=== PATIENT | female | born 1995 | race Hispanic/Latino ===

== ENCOUNTER 2019-01-12 16:00 | Outpatient (CLI) | payer BC ==
[2019-01-12 16:55] VITALS: BP 101/58
== END 2019-01-12 17:05 | disposition home or self-care (01) ==
LOC: TRG 16:00
PROVIDERS: ATTEND Obstetrics & Gynecology
DX: O47.1 False labor at or after 37 completed weeks of gestation (principal); O99.513 Diseases of the respiratory system complicating pregnancy, third trimester; J45.909 Unspecified asthma, uncomplicated; Z3A.38 38 weeks gestation of pregnancy

== ENCOUNTER 2019-01-29 15:26 | Inpatient (IN) | payer BC ==
[2019-01-29] MEDS ORDERED: LACTATED RINGERS 1,000 ML ONE (16:02)
[2019-01-29] MEDS ORDERED: MINERAL OIL PO PRN (16:09)
[2019-01-29] MEDS ORDERED: BRETHINE SUB-Q PRN (16:09)
[2019-01-29] MEDS ORDERED: ZOFRAN IV PRN ×2 (16:09→23:27)
[2019-01-29] MEDS ORDERED: AMPICILLIN/NS 2 GM/100 ML 2 GM/100 ML BAG IV ONE (16:09)
[2019-01-29] MEDS ORDERED: XYLOCAINE 2% INFILTRATI ONE (16:09)
[2019-01-29] MEDS ORDERED: SUBLIMAZE IV PRN (16:09)
--- NOTE | 2019-01-29 16:19 | History and Physical Report ---
History of Present Illness Date of examination: 01/29/19 (sent from office in active labor) Date of admission: 01/29/19 15:26 History of present illness: EDC Confirmation: 01/23/2019 Gestational Age: 7 weeks Past History : 3 Term Births: 1 Premature Births: 0 Living Children: 1 Para: 1 Mult. Births: 0 Prev : 0 Aborta: 1 Elect. Ab: 0 Spont. Ab: 1 Ectopics: 0 # 1 Delivery date: 06/30/2016 Weeks Gestation: 38 Delivery type: Vaginal Anesthesia type: epidural Delivery location: [facility] Sex: male weight: 6.31 Name: Juan Kirkland Comments: none # 2 Delivery date: 02/2018 Weeks Gestation: 8 Delivery type: SAB Delivery location: [place] Comments: D&C Past Medical History: Reviewed history from 11/17/2015 and no changes required: IC Past Surgical History: cystoscopies D&C: (2017) Family History Summary: Reviewed history and no changes required: 06/06/2018 Mother (biol.) - Has Family History of Hypertension - Entered On: 11/17/2015 Father (biol.) - Has Family History of Hypertension - Entered On: 11/17/2015 Father (biol.) - Has No Family History of Breast Cancer - Entered On: 11/17/2015 Father (biol.) - Has No Family History of Cervical Cancer - Entered On: 11/17/2015 Father (biol.) - Has No Family History of Colon Cancer - Entered On: 11/17/2015 Father (biol.) - Has No Family History of Diabetes - Entered On: 11/17/2015 Father (biol.) - Has No Family History of Ovarvian Cancer - Entered On: 11/17/2015 Father (biol.) - Has No Family History of DVT/PE on OCP - Entered On: 11/17/2015 Social History: Patient is administration professional Smoking History: Patient has never smoked. Risk Factors: Smoked Tobacco Use: Never smoker Drug use: no HIV high-risk behavior: low risk Alcohol use: no Past Medical History Surgery (Non-statistician): cystoscopies D&C: (2017) Abnormal PAP: positive, 2015- no f/u needed SEDRICK Exposure: negative Infertility: negative Uterine Anomaly: negative Uterine Surgery (not C/S): negative Other Gynecologic Problems: negative Social Hx: Patient is administration professional Smoking History: Patient has never smoked. Infection History Hx of STD: none HIV Risk Eval: low risk Hepatitis B Risk Eval: low risk Personal hx. of genital herpes: no Genetic History Congenital Heart Defect: Mom: no Dad: no Jing Disease: Mom: no Dad: no Thalassemia Mom: no Dad: no Neural Tube Defect Mom: no Dad: no Down's Syndrome Mom: no Dad: no Vinay-Sachs Mom: no Dad: no Sickle Cell Disease/Trait Mom: no Dad: no Hemophilia Mom: no Dad: no Muscular Dystrophy Mom: no Dad: no Cystic Fibrosis Mom: no Dad: no [place] Chorea Mom: no Dad: no Mental Retardation Mom: no Dad: no Fragile X Mom: no Dad: no Other Genetic/Chromosomal Disorder Mom: no Dad: no Child w/other defect Mom: no Dad: no Current Allergies (reviewed today): BACTRIM (SULFAMETHOXAZOLE-TRIMETHOPRIM TABS) (Critical) Past History - Obstetrical History Expected Date of Delivery: 01/23/19 Actual Gestation: 40 Week(s) 6 Day(s) : 3 Para: 1 Hx # Term Pregnancies: 1 Number of Pregnancies: 0 Spontaneous Abortions: 1 Induced : 0 Number of Living Children: 1 Medications and Allergies Allergies Allergy/AdvReac Type Severity Reaction Status Date / Time No Known Allergies Allergy Verified 06/26/16 16:44 Home Medications Medication Instructions Recorded Confirmed Last Taken Type Ferrous Sulfate [Feosol 325 MG tab] 325 mg PO BID #60 tablet 07/01/16 Unknown Rx Ibuprofen [Motrin 800 MG tab] 800 mg PO Q6H PRN #30 tablet 07/01/16 Unknown Rx [id number]/Iron Fum/Folic/Docusate 01/12/19 01/01/19 09:00 History [Se-Maria Ines 19 Tablet] 1 - Vital Signs Vital signs: Vital Signs Pulse BP 101 H 135/90 01/29/19 15:52 01/29/19 15:52 Temp Pulse Resp BP Pulse Ox 96 H 142/87 01/29/19 16:08 01/29/19 16:08 - Physical Exam Breasts: Positive: deferred Cardiovascular: Regular rate, Normal S1, Normal S2 Lungs: Positive: Normal air movement Abdomen: Positive: normal appearance, soft, normal bowel sounds. Negative: distention, tenderness Genitourinary (Female): Positive: other (leaking meconium stained fluid) Vulva: both: normal Vagina: Positive: normal moisture. Negative: discharge Cervix: Negative: lesion, discharge Uterus: Positive: normal size, normal contour Adnexa: both: normal Anus/Rectum: Positive: normal perianal skin, heme negative. Negative: rectal mass, hemorrhoids Extremities: Positive: normal Deep Tendon Reflex Grade: Normal +2 - Obstetrical FHR: category 1 Uterine Contraction Monitor Mode: External Cervical Dilatation: 5.5 (particulate meconium noted on exam) Cervical Effacement Percentage: 80 station: -1 Results All other labs normal. GBS POSITIVE HBsAg Screen Negative Negative *1 RPR Non Reactive Non Reactive *2 Rubella Antibodies, IgG 1.58 index Immune >0.99 *3 Non-immune <0.90 Equivocal 0.90 - 0.99 Immune >0.99 ABO Grouping O *4 Rh Factor Positive *5 Please note: Prior records for this patient's ABO / Rh type are not available for additional verification. Antibody Screen Negative Negative *6 WBC 7.4 x10E3/uL 3.4-10.8 *7 RBC 4.06 x10E6/uL 3.77-5.28 *8 Hemoglobin 12.2 g/dL 11.1-15.9 *9 Hematocrit 36.7 % 34.0-46.6 *10 MCV 90 fL 79-97 *11 MCH 30.0 pg 26.6-33.0 *12 MCHC 33.2 g/dL 31.5-35.7 *13 RDW 13.5 % 12.3-15.4 *14 Platelets 238 x10E3/uL 150-379 *15 Neutrophils 69 % Not Estab. *16 Lymphs 21 % Not Estab. *17 Monocytes 7 % Not Estab. *18 Eos 3 % Not Estab. *19 Basos 0 % Not Estab. *20 ! Immature Cells <No Reported Value> *21 Neutrophils (Absolute) 5.1 x10E3/uL 1.4-7.0 *22 Lymphs (Absolute) 1.5 x10E3/uL 0.7-3.1 *23 Monocytes(Absolute) 0.5 x10E3/uL 0.1-0.9 *24 Eos (Absolute) 0.2 x10E3/uL 0.0-0.4 *25 Baso (Absolute) 0.0 x10E3/uL 0.0-0.2 *26 ! Immature Granulocytes 0 % Not Estab. *27 ! Immature Grans (Abs) 0.0 x10E3/uL 0.0-0.1 *28 ! NRBC <No Reported Value> *29 Hematology Comments: <No Reported Value> *30 Tests: (2) Panel 016808 ([id number]) HIV Screen 4th Generation wRfx Non Reactive Non Reactive *31 Tests: (3) HCV Ab w/Rflx to Verification (890332) ! HCV Ab <0.1 s/co ratio 0.0-0.9 *32 Tests: (4) Comment: (518350) ! Comment: SPRCS *33 Non reactive HCV antibody screen is consistent with no HCV infection, unless recent infection is suspected or other evidence exists to indicate HCV infection. Tests: (5) Urine Culture, Routine (210537) Urine Culture, Routine Final report *34 Tests: (6) Result (020853) ! Result 1 No growth *35 Assessment and Plan - Patient Problems (1) 41 weeks gestation of Onset Date: ~01/29/19 Current Visit: Yes Status: Acute Plan to address problem: 23yo @ 41 w in active labor SVE 5-6,80,-1 Sent from office. Pt also c/o ROM brown fluid Meconium stained fluid noted on exam. NICU notified. GBS+ ABX ordered. All orders in EMR. (2) Group B Streptococcus carrier state affecting Onset Date: ~01/29/19 Current Visit: Yes Status: Acute Plan to address problem: Ampicillin per protocol
[2019-01-29 16:46] LABS: Hematocrit 34.9 % (30.3-42.9); Hemoglobin 11.5 gm/dl (10.1-14.3); Mean Corpuscular HGB Conc 33 % (30-34); Mean Corpuscular Volume 80 fl (79-97); Platelet Count 148 K/mm3 (140-440); Red Blood Count 4.36 M/mm3 (3.65-5.03); Red Cell Distribution Width 15.1 % (13.2-15.2)
[2019-01-29] MEDS ORDERED: PITOCin/NS 30 UNIT/500ML 30 UNITS/500 ML BAG IV SCH (17:00)
[2019-01-29] MEDS: LACTATED RINGERS 1,000 ML IV SCH ×2 (17:35→18:54)
[2019-01-29] MEDS ORDERED: fentaNYL-BUPIV 2 MCG/ML-0.125% 200 MCG/100 ML BAG EPIDURAL ONE (18:41)
[2019-01-29] MEDS ORDERED: NARCAN 2 MG/2 ML IV PRN (19:15)
--- NOTE | 2019-01-29 19:22 | Anesthesia Day of Surgery ---
Anesthesia Day of Surgery - Day of Surgery Patient Examined: Yes Patient H&P Reviewed: Yes Patient is NPO: Yes Beta Blockers: No Cardiac Clearance: No Pulmonary Clearance: No Travis's Test: N/A
--- NOTE | 2019-01-29 19:22 | Post Anesthesia Evaluation ---
- Post Anesthesia Evaluation Patient Participated: Yes Airway Patent: Yes Stable Respiratory Function: Yes Nausea/Vomiting: No Temp > 96.8F: Yes Pain Manageable: Yes Adequeate Hydration: Yes Anesthesia Complications: No Block Receding Appropriately: Yes Patient on Ventilator: No
--- NOTE | 2019-01-29 19:22 | Anesthesia Consultation ---
Anesthesia Consult and Med Hx Date of service: 01/29/19 - Airway Anesthetic Teeth Evaluation: Good ROM Head & Neck: Adequate Mental/Hyoid Distance: Adequate Mallampati Class: Class II Intubation Access Assessment: Probably Good - Pulmonary Exam CTA: Yes - Pre-Operative Health Status ASA Pre-Surgery Classification: ASA2 Proposed Anesthetic Plan: Epidural - Pulmonary Hx Smoking: No Hx Asthma: Yes (as a kid) Hx Respiratory Symptoms: No SOB: No COPD: No Home Oxygen Therapy: No Hx Pneumonia: No Hx Sleep Apnea: No - Cardiovascular System Hx Hypertension: No Hx Coronary Artery Disease: No Hx Heart Attack/AMI: No Hx Angina: No Hx Percutaneous Transluminal Coronary Angioplasty (PTCA): No Hx Cardia Arrhythmia: No Hx Pacemaker: No Hx Internal Defibrillator: No Hx Valvular Heart Disease: No Hx Heart Murmur: No Hx Peripheral Vascular Disease: No - Central Nervous System Hx Neuromuscular Disorder: No Hx Seizures: No CVA: No Hx Back Pain: Yes Hx Psychiatric Problems: No - Gastrointestinal Hx Ulcer: No Hx Gastroesophageal Reflux Disease: Yes - Endocrine Hx Renal Disease: No Hx End Stage Renal Disease: No Hx Cirrhosis: No Hx Liver Disease: No Hx Insulin Dependent Diabetes: No Hx Non-Insulin Dependent Diabetes: No Hx Thyroid Disease: No Hx Hypothyroidism: No Hx Hyperthyroidism: No - Hematic Hx Anemia: No Hx Sickle Cell Disease: No - Other Systems Hx Alcohol Use: No Hx Substance Use: No Hx Cancer: No Hx Obesity: No
[2019-01-29] MEDS ORDERED: fentaNYL-BUPIV 2 MCG/ML-0.125% 200 MCG/100 ML BAG EPIDURAL SCH (20:00)
--- NOTE | 2019-01-29 20:06 | Progress Note ---
Assessment and Plan - Patient Problems (1) 41 weeks gestation of Onset Date: ~01/29/19 Current Visit: Yes Status: Acute Subjective - Subjective Date of service: 01/29/19 Patient reports: new complaints (pressure) Objective - Vital Signs Vital Signs: Vital Signs - 12hr 01/29/19 01/29/19 01/29/19 15:52 16:08 16:23 Temperature Pulse Rate 101 H 96 H 102 H Respiratory Rate Blood Pressure 135/90 142/87 133/88 O2 Sat by Pulse Oximetry 01/29/19 01/29/19 01/29/19 16:35 16:39 16:53 Temperature 98.5 F Pulse Rate 102 H 110 H 104 H Respiratory 15 Rate Blood Pressure 146/67 126/80 O2 Sat by Pulse Oximetry 01/29/19 01/29/19 01/29/19 17:10 17:15 17:20 Temperature Pulse Rate 105 H 103 H 106 H Respiratory Rate Blood Pressure O2 Sat by Pulse 98 100 98 Oximetry 01/29/19 01/29/19 01/29/19 17:25 17:26 17:27 Temperature Pulse Rate 102 H 105 H 108 H Respiratory Rate Blood Pressure 119/61 119/70 O2 Sat by Pulse 99 Oximetry 01/29/19 01/29/19 01/29/19 17:29 17:31 17:33 Temperature Pulse Rate 105 H 105 H 93 H Respiratory Rate Blood Pressure 116/60 120/59 111/59 O2 Sat by Pulse 98 Oximetry 01/29/19 01/29/19 01/29/19 17:35 17:36 17:37 Temperature Pulse Rate 100 H 95 H 100 H Respiratory Rate Blood Pressure 108/58 108/56 O2 Sat by Pulse 98 Oximetry 01/29/19 01/29/19 01/29/19 17:39 17:41 17:43 Temperature Pulse Rate 106 H 95 H 87 Respiratory Rate Blood Pressure 117/58 102/52 108/54 O2 Sat by Pulse 96 Oximetry 01/29/19 01/29/19 01/29/19 17:46 17:47 17:49 Temperature 98.2 F Pulse Rate 89 88 Respiratory Rate Blood Pressure 92/52 O2 Sat by Pulse 100 89 Oximetry 01/29/19 01/29/19 01/29/19 17:51 17:56 18:01 Temperature Pulse Rate 104 H 104 H 87 Respiratory Rate Blood Pressure 90/52 94/53 O2 Sat by Pulse 100 100 100 Oximetry 01/29/19 01/29/19 01/29/19 18:06 18:10 18:11 Temperature Pulse Rate 87 81 86 Respiratory Rate Blood Pressure 125/60 103/52 O2 Sat by Pulse 100 100 Oximetry 01/29/19 01/29/19 01/29/19 18:13 18:30 18:36 Temperature Pulse Rate 75 90 82 Respiratory Rate Blood Pressure 103/55 171/80 115/63 O2 Sat by Pulse Oximetry 01/29/19 01/29/19 01/29/19 18:59 19:04 19:05 Temperature Pulse Rate 97 H 86 Respiratory 18 Rate Blood Pressure 127/79 O2 Sat by Pulse 99 Oximetry 01/29/19 01/29/19 01/29/19 19:10 19:15 19:20 Temperature Pulse Rate 93 H 90 83 Respiratory Rate Blood Pressure O2 Sat by Pulse 100 99 99 Oximetry 01/29/19 01/29/19 01/29/19 19:25 19:30 19:35 Temperature Pulse Rate 93 H 93 H 95 H Respiratory Rate Blood Pressure O2 Sat by Pulse 99 99 99 Oximetry 01/29/19 01/29/19 01/29/19 19:37 19:40 19:45 Temperature Pulse Rate 91 H 94 H 97 H Respiratory Rate Blood Pressure 120/72 O2 Sat by Pulse 99 100 Oximetry 01/29/19 01/29/19 01/29/19 19:50 19:55 20:00 Temperature Pulse Rate 108 H 103 H 106 H Respiratory Rate Blood Pressure O2 Sat by Pulse 100 100 100 Oximetry - Exam Breasts: deferred Lungs: Normal air movement Abdomen: Absent: tenderness Vulva: both: normal Uterus: Present: fundal height above umbilicus. Absent: tenderness FHR: category 1 Cervical Dilatation: 10 Cervical Effacement Percentage: 100 station: +2 Uterine Contraction Frequency (min): 1-2 Uterine Contraction Pattern: Regular - Labs Labs: Abnormal Labs 01/29/19 16:36 MCH 26 L Laboratory Results - last 24 hr 01/29/19 01/29/19 16:36 16:36 WBC 6.3 RBC 4.36 Hgb 11.5 Hct 34.9 MCV 80 MCH 26 L MCHC 33 RDW 15.1 Plt Count 148 Blood Type O POSITIVE Antibody Screen Negative
[2019-01-29] MEDS ORDERED: AMPICILLIN/NS 1 GM/50 ML 1 GM/50 ML BAG IV SCH (20:11)
--- NOTE | 2019-01-29 20:45 | Procedure Note ---
OB Delivery Note - Delivery Date of Delivery: 01/29/19 Surgeon: PATRICIO RUIZ Estimated blood loss: other (250mL) - Vaginal Delivery presentation: vertex Delivery position: OA Intrapartum events: foul smelling fluid Delivery induction: none Delivery monitor: external FHT, external uterine Route of delivery: Delivery placenta: spontaneous (intact) Delivery cord: nuchal cord (x1; release over body) Episiotomy: none Delivery laceration: other (small abrasion repaired with 3-0 vicryl) Delivery repair: vicryl Anesthesia: epidural - Infant A at 1 minute: 8 at 5 minutes: 9 Infant Gender: Female (7lbs 11oz)
[2019-01-29] MEDS: PITOCin/NS 20 UNIT/1000ML DRIP 20 UNITS/1,000 ML BAG IV SCH ×2 (20:56→21:59)
[2019-01-29] MEDS ORDERED: IBUPROFEN PO PRN (22:47)
[2019-01-29] MEDS ORDERED: DULCOLAX PR PRN (23:27)
[2019-01-29] MEDS ORDERED: TYLENOL PO PRN (23:27)
[2019-01-29] MEDS ORDERED: PHENERGAN PR PRN (23:27)
[2019-01-29] MEDS ORDERED: BENADRYL PO PRN (23:27)
[2019-01-29] MEDS ORDERED: TUCKS PAD TP PRN (23:27)
[2019-01-29] MEDS ORDERED: LANSINOH TP PRN (23:27)
[2019-01-29] MEDS ORDERED: PHENERGAN PO PRN (23:27)
[2019-01-29] MEDS ORDERED: MILK OF MAGNESIA PO PRN (23:27)
[2019-01-29] MEDS ORDERED: SODIUM CHLORIDE FLUSH SYRINGE 10 ML IV PRN (23:45)
[2019-01-30] MEDS: IBUPROFEN PO SCH ×3 (05:13→23:21)
--- NOTE | 2019-01-30 08:11 | Progress Note ---
Assessment and Plan PPD1. Patient reports feeling well, she denies any complaints or needs at this time. Fundus is firm, ML, U/2. Vaginal bleeding is minimal, patient denies any heavy bleeding or clots. She reports pain is well controlled with medications. Patient is breast feeding only, reports it is going well, no breast complaints. VSSAF. Will review labs when results are in EMR. Patient denies any dizziness or feeling faint with ambulation or position changes. Continue post pathway. Subjective - Subjective Date of service: 01/30/19 Principal diagnosis: PPD1 s/p Patient reports: appetite normal, voiding normally, pain well controlled, ambulating normally [place]: doing well (taken to nursery by RN at this time for "spitting up a lot and wet lungs") Objective - Vital Signs Latest vital signs: Vital Signs Temp Pulse Resp BP BP Pulse Ox 01/30/19 06:05 97.4 F L 82 18 114/53 98 01/30/19 01:22 97.6 F 78 20 117/75 97 01/29/19 22:30 98.2 F 83 18 140/92 01/29/19 21:30 99 H 123/76 01/29/19 21:15 104 H 124/81 01/29/19 21:00 106 H 118/68 01/29/19 20:55 107 H 99 01/29/19 20:54 98.7 F 109 H 19 127/77 99 01/29/19 20:50 104 H 98 01/29/19 20:45 110 H 98 01/29/19 20:20 110 H 99 01/29/19 20:15 118 H 100 01/29/19 20:10 108 H 100 01/29/19 20:08 108 H 127/77 01/29/19 20:05 102 H 100 01/29/19 20:00 106 H 100 01/29/19 19:55 103 H 100 01/29/19 19:50 108 H 100 01/29/19 19:45 97 H 100 01/29/19 19:40 94 H 99 01/29/19 19:37 91 H 120/72 01/29/19 19:35 95 H 99 01/29/19 19:30 93 H 99 01/29/19 19:25 93 H 99 01/29/19 19:20 83 99 01/29/19 19:15 90 99 05 19:10 93 H 100 05 19:05 86 99 05 19:04 18 01/29/19 18:59 97 H 127/79 05 18:36 82 115/63 05 18:30 90 171/80 05 18:13 75 103/55 05 18:11 86 103/52 100 01/29/19 18:10 81 125/60 05 18:06 87 100 05 18:01 87 100 01/29/19 17:56 104 H 94/53 100 01/29/19 17:51 104 H 90/52 100 01/29/19 17:49 98.2 F 88 92/52 01/29/19 17:47 89 01/29/19 17:46 89 100 01/29/19 17:43 87 108/54 01/29/19 17:41 95 H 102/52 96 01/29/19 17:39 106 H 117/58 01/29/19 17:37 100 H 108/56 01/29/19 17:36 95 H 98 01/29/19 17:35 100 H 108/58 01/29/19 17:33 93 H 111/59 01/29/19 17:31 105 H 120/59 98 01/29/19 17:29 105 H 116/60 01/29/19 17:27 108 H 119/70 01/29/19 17:26 105 H 99 01/29/19 17:25 102 H 119/61 01/29/19 17:20 106 H 98 01/29/19 17:15 103 H 100 01/29/19 17:10 105 H 98 01/29/19 16:53 104 H 126/80 01/29/19 16:39 110 H 146/67 05 16:35 98.5 F 102 H 15 01/29/19 16:23 102 H 133/88 01/29/19 16:08 96 H 142/87 01/29/19 15:52 101 H 135/90 Intake and Output 01/29/19 05 05 23:59 07:59 15:59 Intake Total 295.833 480 Output Total 1000 1500 Balance -704.167 -1020 Intake: IV 295.833 Lactated Ringers 1,000 ml 164.583 @ 125 mls/hr IV DIRECT YOHANA Rx#:[id number] PITOCin/NS 20 UNIT/1000ML 131.25 DRIP 20 units In 1,000 ml @ 125 mls/hr IV DIRECT YOHANA Rx#:[id number] Intake, Free Water 480 Output: Urine 1000 1500 Indwelling Catheter 200 Void 800 1500 Other: Total, Output Amount 800 700 # Voids Void 1 1 Weight 73.028 kg Estimated Blood Loss 250 - Exam Breasts: Present: normal Cardiovascular: Present: Regular rate, Normal S1, Normal S2 Lungs: Present: Clear to auscultation Abdomen: Present: normal appearance, soft, normal bowel sounds Vulva: both: normal Uterus: Present: normal, firm Extremities: Present: normal Deep Tendon Reflex Grade: Normal +2 Incision: Present: normal, dry, intact - Labs Labs: Abnormal lab results 01/29/19 Range/Units 16:36 MCH 26 L (28-32) pg
[2019-01-30 11:47] LABS: Hematocrit 32.5 % (30.3-42.9); Hemoglobin 10.7 gm/dl (10.1-14.3)
[2019-01-31] MEDS: IBUPROFEN PO SCH ×2 (05:33→12:06)
[2019-01-31] MEDS ORDERED: BOOSTRIX IM ONE (06:00)
--- NOTE | 2019-01-31 14:56 | Discharge Summary ---
Providers - Providers Date of Admission: 01/29/19 15:26 Date of discharge: 01/31/19 Attending physician: PATRICIO RUIZ 01/29/19 23:28 Consult to [employer] [CONS] Routine Reason For Exam: assistance with , SNS Primary care physician: ADRIANA MIRANDA Hospitalization Reason for admission: active labor Delivery: Procedure: other (vaginal delivery) Procedure details: see delivery note complications: none Discharge diagnosis: IUP at term delivered baby: female Hospital course: Pt s/p vaginal delivery. PP course was not complicated. Pt was d/c home on PPD#2 Condition at discharge: Good Disposition: DC-01 TO HOME OR SELFCARE - Discharge Diagnoses (1) (normal spontaneous vaginal delivery) Status: Acute Plan - Provider Discharge Summary Activity: no sex for 6 weeks, no heavy lifting 4 weeks Additional instructions: [] Smoking cessation referral if applicable(refer to patient education folder for contact #) [] Refer to [facility]'s [facility] [address] Booklet Call your doctor immediately for: * Fever > 100.5 * Heavy vaginal bleeding ( >1 pad per hour) * Severe persistent headache * Shortness of breath * Reddened, hot, painful area to leg or breast * Drainage or odor from incision. * Keep incision clean and dry at all times and follow doctor's instructions regarding bathing/showering - Follow up plan Follow up: ADRIANA MIRANDA MD [Primary Care Provider] - 7 Days
[2019-01-31 17:19] VITALS: BP 129/85
== END 2019-01-31 16:30 | disposition home or self-care (01) | DRG 807 ==
LOC: LD 15:26 → OB 22:20
PROVIDERS: ADMIT Obstetrics & Gynecology; ATTEND Obstetrics & Gynecology
PROC: 10E0XZZ Delivery of Products of Conception, External Approach (ICD-10-PCS; principal; 2019-01-29)
PROC: 3E0R3BZ Introduction of Anesthetic Agent into Spinal Canal, Percutaneous Approach (ICD-10-PCS; 2019-01-29)
PROC: 00HU33Z Insertion of Infusion Device into Spinal Canal, Percutaneous Approach (ICD-10-PCS; 2019-01-29)
PROC: 0UQMXZZ Repair Vulva, External Approach (ICD-10-PCS; 2019-01-29)
DX: O99.52 Diseases of the respiratory system complicating childbirth (principal); Z37.0 Single live birth; J45.909 Unspecified asthma, uncomplicated; O99.62 Diseases of the digestive system complicating childbirth; O69.81X0 Labor and delivery complicated by cord around neck, without compression, not applicable or unspecified; K21.9 Gastro-esophageal reflux disease without esophagitis; O99.824 Streptococcus B carrier state complicating childbirth; O70.9 Perineal laceration during delivery, unspecified; Z82.49 Family history of ischemic heart disease and other diseases of the circulatory system; Z3A.40 40 weeks gestation of pregnancy; Z79.899 Other long term (current) drug therapy
CPT/HCPCS: 36415; 85014; 85018; 85027; 86592; 86850; 86900; 86901; 90471; 90715; G0378; J0290; J2590; J3010; J7120